=== PATIENT | female | born 1975 ===

== ENCOUNTER 2019-07-08 16:45 | Outpatient (REF) | payer BC, SELFPAY ==
[2019-07-08 21:26] LABS: Anion Gap 9.5 mmol/L (3-11); BUN 5 mg/dL (7-18); CO2 24.5 mmol/L (21.0-32.0); CREATININE 0.58 mg/dL (0.55-1.02); Calcium 8.8 mg/dL (8.5-10.1); Chloride 108 mmol/L (98-107); Glucose 82 mg/dL (70-100); Potassium 3.7 mmol/L (3.5-5.1); Sodium 142 mmol/L (136-145)
== END 2019-07-08 17:05 ==
LOC: NCHCN 16:45
PROVIDERS: PCP Family Medicine; Visit Provider Registered Nurse
DX: I10 Essential (primary) hypertension (principal)
CPT/HCPCS: 80048

== ENCOUNTER 2020-02-29 20:23 | Outpatient (REF) | payer BC, SELFPAY ==
[2020-02-29 20:37] LABS: HCT 49.2 % (36.0-46.0); HGB 17.1 g/dL (12.0-15.5); Mean Corp. HGB Concentration 34.8 g/dL (32.0-36.0); Mean Corpuscular Volume 100.8 fL (80-95); Platelet Count 254 x1000/uL (130-400); RBC 4.88 m/cumm (4.00-5.20); RBC Distribution Width 12.3 % (11.7-14.6); White Blood Cell Count 10.82 k/cumm (4.4-10.8)
[2020-02-29 21:15] LABS: Vitamin D 25 Total 28.4 ng/ml (30-100)
[2020-02-29 21:20] LABS: ALT 28 U/L (14-59); AST 19 U/L (15-37); Albumin 4.7 g/dL (3.4-5.0); Alkaline Phosphatase 70 U/L (46-116); Anion Gap 11.7 mmol/L (3-11); BUN 7 mg/dL (7-18); Bilirubin, Total 0.8 mg/dL (0.2-1.0); CO2 23.3 mmol/L (21.0-32.0); CREATININE 0.67 mg/dL (0.55-1.02); Calcium 9.8 mg/dL (8.5-10.1); Chloride 101 mmol/L (98-107); Glucose 93 mg/dL (74-106); Potassium 3.6 mmol/L (3.5-5.1); Sodium 136 mmol/L (136-145); TSH (W/Ref FT4) 1.08 uIU/mL (0.36-3.74); Vitamin B12 237 pg/mL (193-986)
== END 2020-02-29 20:43 ==
LOC: NCHCN 20:23
PROVIDERS: PCP Family Medicine; Visit Provider Nurse Practitioner Community Health
DX: F41.8 Other specified anxiety disorders (principal); R29.2 Abnormal reflex
CPT/HCPCS: 80053; 82306; 85027; 82607; 84443

== ENCOUNTER 2022-07-26 12:48 | Emergency (ER) | payer OTHER, SELFPAY ==
[2022-07-26 12:53] VITALS: BP 176/100; PULSE 110; RESP 14; TEMP 37; O2SAT 99
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
[2022-07-26] MEDS: Acetaminophen 500 MG TAB 1000 MG PO (14:20)
[2022-07-26 15:29] VITALS: BP 160/105; PULSE 78; O2SAT 98
== END 2022-07-26 15:29 | disposition home or self-care (01) ==
PROVIDERS: Emergency Provider Nurse Practitioner Family; PCP Family Medicine
DX: S09.8XXA Other specified injuries of head, initial encounter (principal); Y04.2XXA Assault by strike against or bumped into by another person, initial encounter; R51.9 Headache, unspecified; I10 Essential (primary) hypertension
CPT/HCPCS: 99284; 70450; 70486; 99283